=== PATIENT | male | born 1995 | race Caucasian/White ===

== ENCOUNTER 2017-04-17 07:25 | Day surgery (SDC) | payer MEDICAID ==
[2017-04-17 07:49] VITALS: BMI 21.6
[2017-04-17 07:58] VITALS: O2SAT 100
[2017-04-17] MEDS ORDERED: Lidocaine Hydrochloride 5 ML INJ ONE (09:15)
[2017-04-17] MEDS ORDERED: Propofol 10 mg/ml Inj (20 ML) ONE ×2 (09:15→09:29)
[2017-04-17 09:52] VITALS: TEMP 98.7
[2017-04-17 10:59] VITALS: BP 108/60; PULSE 57; RESP 13
== END 2017-04-17 10:56 | disposition home or self-care (01) ==
LOC: C.ENDO 07:25
PROVIDERS: ATTEND Internal Medicine Gastroenterology
DX: K50.00 Crohn's disease of small intestine without complications (principal); F17.210 Nicotine dependence, cigarettes, uncomplicated; D63.8 Anemia in other chronic diseases classified elsewhere; B96.81 Helicobacter pylori [H. pylori] as the cause of diseases classified elsewhere; K62.1 Rectal polyp
CPT/HCPCS: 45380; 83993; 88305; J2704